=== PATIENT | female | born 1975 | race Caucasian/White ===

== ENCOUNTER → 2022-02-02 13:20 | Outpatient (CLI) | payer BC, SELFPAY ==
--- NOTE | ~2022-02-02 | US_ITS ---
EXAMINATION: US carotid duplex BI DATE: 02/02/2022 13:52 INDICATION: Dizziness TECHNIQUE: Grayscale, color Doppler, and pulsed Doppler images of the cervical carotid arteries were obtained. The degree of vessel stenosis is placed in one of the following categories: normal, <50%, 5 0-69%, >=70% but less than near-occlusion, near-occlusion, or total occlusion. Note that percent sten osis relative to normal distal artery lumen diameter is indirectly measured from velocity measurement s as described by Mannie, et al. Radiology 2003; 229:340-346. Notes: Normal: Peak systolic velocity <125 centimeters/sec and no plaque <50%. Peak systolic velocity <125 ( EDV <40; ICA/CCA PSV ratio <2.0; used these factors only a tandem lesions or low cardiac output or co ntralateral disease) 50-69 %: PSV 125-230 (EDV 40-100; ratio 2-4) >= 70% but less than near occlusion: PSV greater than 230 (EDV > 100; ratio> 4.0) Near Occlusion: PSV that is variable; markedly narrowed lumen Occlusion: Absent flow on color/spectral Doppler and no lumen on atkisn scale. COMPARISON: None. FINDINGS: RIGHT: The right common carotid artery (CCA) peak systolic velocity (PSV) is 93 cm/s. The right internal car otid artery (ICA) PSV is 78 cm/s. The right ICA end-diastolic velocity (EDV) is 29 cm/s. The right IC A/CCA PSV ratio is 1.1. The external carotid artery (ECA) PSV is 87 cm/s. There is antegrade flow in the right vertebral artery. LEFT: The left CCA PSV is 102 cm/s. The left ICA PSV is 92 cm/s. The left ICA EDV is 29 cm/s. The left ICA/ CCA PSV ratio is 1.3. The ECA PSV is 79 cm/s. There is antegrade flow in the left vertebral artery. IMPRESSION: 1. Less than 50% stenosis in the right internal carotid artery by sonographic criteria. 2. Less than 50% stenosis in the left internal carotid artery by sonographic criteria. Reviewed, dictated and finalized at location B. IMPRESSION: 1. Less than 50% stenosis in the right internal carotid artery by sonographic tristian dodson. 2. Less than 50% stenosis in the left internal carotid artery by sonographic yvette kang.
== END ==
PROVIDERS: PCP Physician Assistant; Visit Provider Physician Assistant
DX: R42 Dizziness and giddiness (principal); I65.23 Occlusion and stenosis of bilateral carotid arteries
CPT/HCPCS: 93880

== ENCOUNTER → 2022-02-19 09:15 | Outpatient (CLI) | payer BC, SELFPAY ==
--- NOTE | ~2022-02-19 | MR_ITS ---
EXAMINATION: MR brain IAC wo/w con DATE: 02/19/2022 10:05 INDICATION: Dizziness. TECHNIQUE: Magnetic resonance imaging (MRI) of the brain and brainstem was performed without and with 15 mL MultiHance intravenous contrast. COMPARISON: None. FINDINGS: There is no intracranial hemorrhage, acute infarction, or abnormal intracranial mass lesion . The ventricles are normal in size. The orbits are normal. The paranasal sinuses are clear. The inte rnal auditory canals and inner and middle ears are normal. The mastoid air cells are normal. IMPRESSION: 1. Normal brain. Reviewed, dictated and finalized at location B. IMPRESSION: 1. Normal brain.
== END ==
PROVIDERS: PCP Physician Assistant; Visit Provider Physician Assistant
DX: R42 Dizziness and giddiness (principal)
CPT/HCPCS: 70553; A9577

== ENCOUNTER 2024-06-04 16:02 | Outpatient (CLI) | payer BC, SELFPAY ==
--- NOTE | ~2024-06-04 | MM_ITS ---
EXAMINATION: MM screening kamala BI w davey HISTORY: Screening TECHNIQUE: Craniocaudal and mediolateral oblique 3-D tomosynthesis images were obtained and synthetic 2-D images were generated. CAD analysis was submitted and interpreted. COMPARISON: No prior mammogram is available for comparison at this institution. BREAST PARENCHYMAL COMPOSITION: Dense: The breasts are heterogeneously dense, which may obscure small masses FINDINGS: There are bilateral breast asymmetries in the upper aspect of both breasts. There is a smal l mass in the outer aspect of the left breast on CC view, tomographic image 46/67. IMPRESSION: 1. Bilateral breast asymmetries. Left breast mass. 2. Recommend comparison to previous outside mammograms. BI-RADS Category 0: Incomplete: Needs additional imaging evaluation. Reviewed, dictated and finalized at location A. E REPAIRER
--- OUTSIDE RECORDS SUMMARY | 2024-06-04 16:06 | XMS_ITS | Data Portability ---
Author Organization [facility] [place] Address [address] [place] [address] Assessment Encounter Date Assessment Date Assessment LastModified by Organization Details LastModified Time 01/15/2020 01/15/2020 Annual gynecological exam performed. Patient will come back in a year unless there are new symptoms. [email or web address] Not available 01/15/2020 12:32:34 05/25/2021 05/25/2021 Annual gynecological exam performed. Patient will come back in a year unless there are new symptoms. [email or web address] Not available 05/25/2021 15:02:07 10/09/2022 10/09/2022 Annual gynecological exam performed. Patient will come back in a year unless there are new symptoms. [email or web address] Not available 10/09/2022 14:14:36 Plan of Treatment Reminders Order Date Submit Date Provider Last Modified By Organization Details Last Modified Time Details Appointments None recorded. Lab None recorded. Referral None recorded. Procedures None recorded. Surgeries None recorded. Imaging MAMMO, screening, bilateral 2019 020 [facility], [address] [place] [address], [phone], 0 15:31:57 MAMMO, screening, bilateral [address], [facility] [address], [address], 3 14:39:32 Medication Orders Mirena 21 mcg/24 hr (up to 8 years) 52 mg intrauterin e device 2019 020 [email or web address] [id number], [address] [facility], [place], [id number], 0 11:05:21 Patient TargetsNo targets recorded. Patient Instructions Encounter Date Encounter Id Patient Instructions Last Modified By Organization Details Last Modified Time 01/15/2020 [id number] [email or web address] Not available 12:56:08 02/03/2020 [id number] [email or web address] Not available 09:59:14 Reason for Referral None Reported. Results Created Date Observation Date Name Description Value Unit Range Abnormal Flag Note LastModifiedBy Organization Detail LastModifiedTime 02/02/20 20 02/03/2020 beta- HCG, quant itati ve, serum or plasm a beta-HCG, serum, (quantitativ e) <1 mIU/m L HCG Refer ence Range s: Males : <0.2- 2.6 mIU/m L Nonpr egnan t Femal e: <0.2- 5 mIU/m L Post- menop ausal Femal e: <0.2- 8.3 mIU/m L Licha l Pregn juan: Week 3 hCG Range : 5.8-7 1.2 mIU/m L Week 4 hCG Range : 9.5-7 50 mIU/m L Week 5 hCG Range : 217-7 138 mIU/m L Week 6 hCG Range : 158-3 1795 mIU/m L Week 7 hCG Range : 3697- 71050 3 mIU/m L Week 8 hCG Range : 09715 -1495 71 mIU/m L Week 9 hCG Range : 17372 -1514 10 mIU/m L Week 10 hCG Range : 85708 -1869 77 mIU/m L Week 12 hCG Range : 90076 -2106 12 mIU/m L Week 14 hCG Range : 12331 -6253 0 mIU/m L Week 15 hCG Range : 88909 -7097 1 mIU/m L Week 16 hCG Range : 9040- 05864 mIU/m L Week 17 hCG Range : 8175- 27757 mIU/m L Week 18 hCG Range : 8099- 51567 mIU/m L Not Available [facility] ([facility]) [address] [place] [address] [address], [place], [address], 02/03/2020 09:22:36 02/03/20 20 02/05/2020 CT + NG DNA, PCR, unspe cifie d speci men trichomonas vaginalis, aptima (panther) NOT DETECT ED normal DNA testi ng perfo rmed by Trans cript ion Media jimbo Ampli ficat ion (TMA) These resul ts shoul d be inter prete d in light of all clini jaya and labor atory findi ngs. This assay is highl y accur ate, but rare false posit reyes and negat reyes resul ts may occur . Posit reyes resul ts in low preva lence popul ation s may requi re re-ev aluat ion. A negat reyes resul t does not precl ude a possi ble infec tion due to a speci men inade quacy or sampl ing error . Test perfo rmed by [facility], [facility], d/b/a Linda valdes, [address] [place] [address], [place] [address] , Ada Marquez ra, DO, Labor atory Dire tor. Not Available [facility] ([facility]) [address] [place] [address] [address], [place], [address], 02/05/2020 05:32:27 02/03/20 20 02/05/2020 CT + NG DNA, PCR, unspe cifie d speci men neisseria gonorrhoeae, aptima NOT DETECT ED normal DNA testi ng perfo rmed by Trans cript ion Media jimbo Ampli ficat ion (TMA) These resul ts shoul d be inter prete d in light of all clini jaya and labor atory findi ngs. This assay is highl y accur ate, but rare false posit reyes and negat reyes resul ts may occur . Posit reyes resul ts in low preva lence popul ation s may requi re re-ev aluat ion. A negat reyes resul t does not precl ude a possi ble infec tion due to a speci men inade quacy or sampl ing error . Test perfo rmed by [facility], [facility], d/b/a [facility], [address] [facility] [address], [place] [address] , Ada Marquez ra, , Labor atory Direc tor. Not Available [facility]) [address] [facility] [address] [address], [place], [address], 02/05/2020 05:32:27 02/03/20 20 02/05/2020 CT + NG DNA, PCR, unspe cifie d speci men chlamydia trachomatis, aptima NOT DETECT ED normal DNA testi ng perfo rmed by Trans cript ion Media jimbo Ampli ficat ion (TMA) These resul ts shoul d be inter prete d in light of all clini jaya and labor atory findi ngs. This assay is highl y accur ate, but rare false posit reyes and negat reyes resul ts may occur . Posit reyes resul ts in low preva lence popul ation s may requi re re-ev aluat ion. A negat reyes resul t does not precl ude a possi ble infec tion due to a speci men inade quacy or sampl ing error . Test perfo rmed by [facility] Jingshi Wanwei, [facility], d/b/a [facility], [address], [place] [address] , Ada Marquez ra, , Labor atory Direc tor. Not Available [facility] ([facility]) [address], [place], [address], 02/05/2020 05:32:27 05/25/19 22 05/25/2021 IMAGE GUIDE D PAP AND HPV REGAR DLESS image guided Pap, HPV regardless of Pap result SEE RESULT S BELOW CASE REPOR T: Cytol ogy Gynec ologi jaya Repor t Case: [id number] Autho gracia grigsby Provi kayla: Bert Gonzalez Colle cted: 05/25 1644 PASTRYCOOK'S ASSISTANT Order ing Locat ion: [place] [facility] bethanie Recei mena: 05/26 0043 First Scree n: Pauly Wills Speci men: Scree daisha Pap - Image d, Cervi x STATE MENT OF ADEQU ACY: Satis facto ry for evalu ation Trans forma tion zone compo nent prese nt FINAL DIAGN OSIS: Negat reyes for Intra epith elial Lesroslyn stewart or Tal salas (NIL) . Elect corrina willingham jono d by Pauly Wills on 2021 at 6:36 PM ----- ----- ----- ----- ----- ----- ----- ----- ----- ----- ----- ----- ----- ----- ----- ----- ----- ---- HPV RESUL TS: HPV mRNA E6/E7 : No HPV mRNA Detec jimbo NOTE: This high risk HPV mRNA assay detec ts fourt een high- risk HPV types (16, 18, 31, 33, 35, 39, 45, 51, 52, 56, 58, 59, 66, 68) witho ut diffe renti ation . COMME NT: Note: This speci men was revie wed by a Cytot echno logis t and/o r Patho logis t (as indic ated in this repor t) after evalu ation using the Thinp rep Imagi ng Syste m. CLINI JAYA INFOR MATIO N: Menst rual Statu s: LMP (if appli cable ): Clini jaya Histo ry/Pr eviou s Pap: Type of Neopl padmini (if appli cable ): Signi fican t Clini jaya Findi ngs: Other Histo ry: Hormo massiel (if appli cable ): PAP EDUCA SHAE L NOTE: The Pap Test is a scree daisha test with an inher ent false negat reyes rate. Liqui d-bas ed sampl ing may decre ase, but will not elimi homer, false negat reyes resul ts. A negat reyes resul t does not precl ude the prese nce and/o r devel opmen t of disea se, since the prese nce of abnor mal cells in the sampl e depen ds on the locat ion of the lesio n and sampl ing techn ique. [place] nued regul ar scree daisha is the best metho d of cance r preve ntion . If repor jimbo cytol ogic findi ng do not corre late with physi jaya and/o r histo rical findi ngs, furth er inves tigat ion is recom wyatt d, as clini ed warrmarisa nted. Not Available [facility] (Lab) [address] [facility], [place], [address], 05/31/2021 19:39:49 02/03/20 20 02/02/2020 MAMMO , scree daisha, bilat eral No observ ation record ed. [facility] (Imaging) [address] [place], [address], 02/05/2020 16:01:38 Result Notes None recorded. Problems Name Problem SNOMED Code Status Onset Date Resolution Date Notes Provider Name and Address Organization Details Recorded Time SNOMED CT Concept Completed 201805/25/2021 Encntr for general adult medical exam w/o abnormal findings; Recorded Elsewhere : No Locati on: [facility] So urce: EHR Chron ic: N Practic e ID: [id number] Bill able Time: 09:45:00 AM Tiffanie thurston [facility] 2 15:04:[address] Concept Completed 201805/25/2021 Encntr for bulk sausage casing tier off exam (general) (routine) w/o abn findings; Recorded Elsewhere : No Locati on: [facility] So urce: EHR Chron ic: N Practic e ID: [id number] Bill able Time: 09:45:00 AM Tiffanie thurston [facility] 2 15:04:37 Human papilloma virus screening Completed 201805/25/2021 Encounter for screening for human papilloma virus (HPV);Rec orded Elsewhere : No Locati on: [facility] So urce: EHR Chron ic: N Practic e ID: [id number] Bill able Time: 09:45:00 AM Tiffanie thurston, [facility] 2 15:04:30 Screening for malignant neoplasm of rectum Completed 201805/25/2021 Encounter for screening for malignant neoplasm of rectum;Pr actice ID: [id number] Tiffanie thurston, [facility] 2 15:04:33 Problem Notes None recorded. Procedures Surgical History Date Name Laterality Status Provider Name and Address Organization Details Recorded Time 3 Most Recent Bone Density completed Marni Diaz [facility] 10/09/2022 14:15:42 2 Date of Last Pap Smear completed Tiffanie Bender [facility] 05/25/2021 15:04:50 2 Date of Last Mammogram completed Tiffanie Bender [facility] 05/25/2021 15:03:19 0 IUD Removal completed Krissy Doshi, [facility] [address], [place], [address], [facility] 02/03/2020 10:00:06 0 IUD Insertion completed Kiarra Martines [facility] 02/03/2020 09:30:10 2 procedure on heart completed Tiffanie Bender [facility] 06/08/2021 15:59:05 Imaging Results Imaging Date Name Status LastModified by Organiz ation Details LastModified Time 02/02/2020 MAMMO, screening, bilateral completed [facility] (Imaging) [address] [place], [address], 02/05/2020 16:01:38 Procedure Notes None recorded. Medical Equipment None Reported. Allergies No known drug allergies Medications Name Sig Start Date Stop Date Status Note LastModified by Organization Details LastModified Time multivita min tablet 2018 active Prescrib ed Elsewher e: Yes Loca tion: [facility] odify By: iva Patel r DateTime : 06/30/19 09:45:00 AM Not Available Not Available Not Available Mirena 21 mcg/24 hr (up to 8 years) 52 mg intrauter ine device MIRENA INSERTED 2019 active Not Available Not Available Not Avai lable hydrocodo ne 5 mg-acetam inophen 325 mg tablet TAKE 1 TABLET BY MOUTH EVERY 6 HOURS NEEDED 10/09 completed Not Available Not Available Not Available prednisol one acetate 1 % eye drops,casey pension SHAKE LIQUID AND INSTILL 1 DROP IN BOTH EYES FOUR TIMES DAILY FOR 7 DAYS 10/09 completed Not Available Not Available Not Available cephalexi n 500 mg capsule TAKE 1 CAPSULE BY MOUTH EVERY 8 HOURS FOR 10 DAYS 10/09 completed Not Available Not Available Not Available cefuroxim e axetil 500 mg tablet TAKE 1 TABLET BY MOUTH EVERY 12 HOURS 10/09 completed Not Available Not Available Not Available Fish Oil 340 mg-1,000 mg capsule 2018 active Prescrib ed Elsewher e: Yes Loca tion: [facility] odify By: iva Patel r DateTime : 06/30/19 09:45:00 AM Not Available Not Available Not Available B12 active Not Available Not Availa ble Not Available Vitamin D3 125 mcg (5,000 unit) tablet 2018 active Prescrib ed Elsewher e: Yes Loca tion: [facility] odify By: iva Patel r DateTime : 06/30/19 09:45:00 AM Not Available Not Available Not Available Ivon Allergy active Not Available Not Available Not Available Vitals Date Recorded Body height Body mass index (BMI) Body weight Provider Name and Address Organization Details Last Updated DateTime 05/25/2021 159.39 cm 28.9 kg/m2 03389.96 g [place]iffanie Bender [facility] 05/25/2021 15:02:32 Date Recorded Systolic blood pressure Diastolic blood pressure Provider Name and Address Organization Details Last Updated DateTime 05/25/2021 128 mm[Hg] 78 mm[Hg] Krissy Doshi, [facility] [address], [place], [address], [facility] 05/28/2021 10:59:29 Date Recorded Body height Body mass index (BMI) Body weight Provider Name and Address Organization Details Last Updated DateTime 10/09/2022 159.39 cm 30.9 kg/m2 39566.48 g Marni Joe [facility] 10/09/2022 14:14:51 Date Recorded Systolic blood pressure Diastolic blood pressure Provider Name and Address Organization Details Last Updated DateTime 10/09/2022 129 mm[Hg] 80 mm[Hg] Krissy Doshi [facility] [address], [place], [address], [facility] 11/02/2022 22:29:35 Date Recorded Body height Body mass index (BMI) Body weight Systolic blood pressure Diastolic blood pressure Provider Name and Address Organization Details Last Updated DateTime 01/15/2020 160.02 cm 28.2 kg/m2 88717.19 g 136 mm[Hg] 84 mm[Hg] Kiarra Martines [facility] 0 12:37:11 Date Recorded Body height Body mass index (BMI) Body weight Systolic blood pressure Diastolic blood pressure Provider Name and Address Organization Details Last Updated DateTime 02/03/2020 160.02 cm 28.7 kg/m2 73793.96 g 137 mm[Hg] 82 mm[Hg] Kiarra Martines [facility] 0 09:40:06 Date Recorded Body height Body mass index (BMI) Body weight Systolic blood pressure Diastolic blood pressure Provider Name and Address Organization Details Last Updated DateTime 03/01/2020 160.02 cm 28.5 kg/m2 84249.37 g 134 mm[Hg] 83 mm[Hg] Kiarra Martines [facility] 0 13:02:09 Social History Question Answer Notes LastModified by Organizat ion Details LastModified Time Tobacco Smoking Status Never Smoker Venkateshnohemiantonia Hanna [facility] 10/09/2022 14:06:10 Do You Have An Advance Directive? No [email or web address] Information not available 05/25/2021 What Is Your Level Of Alcohol Consumption? Occasional [email or web address] Information not available 05/25/2021 How Many Years Have You Consumed Alcohol? 20 [email or web address] Information not available 05/25/2021 Are You Blind Or Do You Have Difficulty Seeing? No [email or web address] Information not available 05/25/2021 What Is Your Level Of Caffeine Consumption? Moderate [email or web address] Information not available 05/25/2021 How Much Tobacco Do You Chew? None [email or web address] Information not available 05/25/2021 In The 14 Days Before Symptom Onset, Have You Had Close Contact With A Laboratory-confir med COVID-19 While That Case Was Ill? No [email or web address] Information not available 05/25/2021 In The 14 Days Before Symptom Onset, Have You Had Close Contact With A Person Who Is Under Investigation For COVID-19 While That Person Was Ill? No [email or web address] Information not available 05/25/2021 Have You Been To An Area Known To Be High Risk For COVID-19? No [email or web address] Information not available 05/25/2021 Are You Deaf Or Do You Have Serious Difficulty Hearing? No [email or web address] Information not available 05/25/2021 What Type Of Diet Are You Following? REGULAR [email or web address] Information not available 05/25/2021 What Is The Highest Grade Or Level Of School You Have Completed Or The Highest Degree You Have Received? CY43663-6 [email or web address] Information not available 05/25/2021 What Is Your Occupation? [employer] [email or web address] Information not available 05/25/2021 Are There Any Guns Present In Your Home? Yes [email or web address] Information not available 05/25/2021 Do You Use Your Seat Belt Or Car Seat Routinely? Yes [email or web address] Information not available 05/25/2021 Do You Have Smoke And Carbon Monoxide Detectors In Your Home? Yes [email or web address] Information not available 05/25/2021 How Much Tobacco Do You Smoke? No [email or web address] Information not available 05/25/2021 Do You Feel Stressed (tense, Restless, Nervous, Or Anxious, Or Unable To Sleep At Night)? [id number] [email or web address] Information not available 05/25/2021 Do You Use Any Illicit Or Recreational Drugs? No [email or web address] Information not available 05/25/2021 Do You Use Sunscreen Routinely? Yes [email or web address] Information not available 05/25/2021 Have You Used IV Drugs? No [email or web address] Information not available 05/25/2021 Sex: Unknown Functional Status Question Answer Note LastModified by Organizat ion Details LastModified Time Are you able to walk? YESWOREST [email or web address] Information not available 05/25/2021 What is your exercise level? Occasional [email or web address] Information not available 05/25/2021 Mental Status None recorded. Family History Relationship Description Onset Age of this Age Resolved Age Notes LastModified by Organization Details LastModified Time Maternal Grandmother Diabetes mellitus [email or web address] Not available 2019 12:38:11 Maternal Uncle Diabetes mellitus [email or web address] Not available 2019 12:38:11 Maternal Uncle Disorder of cardiovascul ar system Not available 2022 14:06:10 Mother Hypercholest erolemia [email or web address] Not available 2019 12:38:20 Maternal Grandfather Disorder of cardiovascul ar system [email or web address] Not available 2022 14:06:10 Notes:Maternal grandfather: Cardiovascular disease Maternal grandmother: Diabetes mellitus Maternal uncle: Diabetes mellitus, Cardiovascular disease Mother: High cholesterol Medical History Condition Response Allergies (Food, seasonal, environmental ) N Other N Breast Cancer N Drug/Latex Allergies/Reactions N Blood Transfusion N Dermatologic Disorders N Lung Disease N Defects or Inherited Disease N Breast Problem N Gestational Diabetes N Hematologic disorders N Anesthesia Complications N History of STI N Deep Vein Thrombosis N Polycystic ovary syndrome N Anxiety Disorder N Autoimmune disease N Arthritis N Infertility N Acid Reflux (GERD) N History of abnormal pap N Cancer N Stroke N Varicosities N Neurologic/Epilepsy Y Endometriosis N High Cholesterol N Headaches N Fibromyalgia N Kidney Disease N Heart Problems Y Kidney or Bladder Problems N Thyroid Problems N GI Problems N Eating Disorder N Anemia N Art (IVF or FET) N Ovarian Cancer N Diabetes N Pulmonary (TB, Asthma) N Hepatitis/Liver Disease N No Past Medical History N Eczema N Urinary Tract Infection N Abuse/Domestic Violence N Asthma N Trauma/Violence N Depression/ depression N Heart Disease Y Pre-Eclampsia N Hypertension Y Osteoporosis N Thrombophilias N Gynecological History Statement/Question Response Abnormal Pap N Date of Last Mammogram 05/17/2021 Date of LMP On BCP's at Conception? N N STIs/STDs N Duration of Flow (days) 5 Current Control Method IUD Age at First Child 30 Frequency of Cycle (Q days) 29 Most Recent Bone Density 10/02/2022 Sexually Active? Y Menses Monthly N Age of first menstrual cycle 14 Date of Last Pap Smear 05/25/2021 Sexual Problems? N LMP Unknown N Obstetrics History GPAL:G 2 P 0 0 0 2 Type Value Living 2 Total 2 Past Encounters Encounter ID Performer Location Encounter Start Date Encounter Closed Date Diagnosis/Indication Diagnosis SNOMED-CT Code Diagnosis ICD10 Code Diagnosis Note [id number] Krissy Doshi , [facility] [address] [address] 01/15/2020 12:31:35 01/15/2020 14:04:23 Gynecologic examination [id number] Z01.419 Suggested Calcium with Vitamin D 1200-1500m g daily. Patient advised to get an annual flu shot in the fall and she could obtain at [facility] or [facility] care clinic. Also to obtain TDap vaccinatio n if you have not had one in the last 10 years. Recommend yearly mammograms . Encouraged monthly self breast exams. Encourage safe sexual practices, to use condoms and limit partners if not already in a monogamous relationsh ip. Engage in daily exercise of low impact aerobic exercise 45-60 minutes 4-5 times weekly. Avoid tobacco and illicit drugs as well as using moderation with alcohol intake less than 1-2 8 oz beverages daily. This lifestyle behavior pattern will lead to less health conditions and longer life span. If BMI greater than 25 weight watchers or dietary consult advised. All questions have been answered. Patient appears to understand informatio n, but if you have any questions please call or respond to this email. IUD Mirena placed elsewhere Due out 11/2019 Will come for HCG day before then come to appt removal/re insertion. Screening mammography 24 [id number] Z12.31 [id number] Krissy Doshi [facility] [address] [address] 02/03/2020 09:28:10 02/03/2020 10:07:16 Contraception care management 530078689 Z30.2 Removal of intrauterine device 41111762 Z30.432 IUD removal procedure reviewed. It was explained that she may have bleeding or spotting after the removal of the device today as well. If cannot see the strings of this device we will need to get an US image to make that the device is still in place and not in an unobtainab le position. She expressed understand ing of all the above instructio ns. Insertion of intrauterine contraceptive device [id number] Z30.433 She has been counseled on all of the r/b/a of placement of an intrauteri ne device that include but are not limited to uterine perforatio n, injury to cervix, vagina, bladder, and bowel.Risk s of bleeding due to injury or increased irregular bleeding due to progestin effect of the device. Risks of infection would be increased within the first 21 days of placement with concommite nt cervicitis . She understand s that the device will need to be removed in this instance due to increased risk of Pelvic inflammato ry disease. Patient is aware she is at highter risk for STD and if contracted she could lose her fertility. Pt is aware that if ocurs that she should contact office immediatel y to rule out ectopic which could be life threatenin g. IUD will also need to be removed and this could cause miscarriag e. Patient also informed that in the event her strings are absent or embedded at the time of removal she may need to have the IUD surgically removed. She was informed of the above and properly consented. IUD placed w/o complicati on. Patient should return to office after next period to check for string placement. Patient to expect irregular bleeding but should be seen in the ED if bleeding increases to soaking a pad an hour for at least 2 hours. She verbalized understand ing. [id number] Krissy Doshi [facility] [address] [address] 03/01/2020 12:57:30 03/01/2020 14:18:26 Intrauterine device check [id number] Z30.431 Patient is here today for 4wk IUD string check. She reports she is doing well after placement of this device. She is eating/dri nking/slee ping well. She has no adverse side effects from use of this device. She wishes to continue this therapy. Time spent in visit is a total of 15 mins with at least 50% of visit consisting of counseling and review of plan of care. [id number] Krissy Dohsi [facility] [address],[place] [address] 05/25/2021 14:45:00 05/26/2021 16:08:33 Gynecologic examination [id number] Z01.419 Suggested Calcium with Vitamin D 1200-1500m g daily. Patient advised to get an annual flu shot in the fall and she could obtain at [facility] or [facility] clinic. Also to obtain TDap vaccinatio n if you have not had one in the last 10 years. Recommend yearly mammograms . Encouraged monthly self breast exams. Encourage safe sexual practices, to use condoms and limit partners if not already in a monogamous relationsh ip. Engage in daily exercise of low impact aerobic exercise 45-60 minutes 4-5 times weekly. Avoid tobacco and illicit drugs as well as using moderation with alcohol intake less than 1-2 8 oz beverages daily. This lifestyle behavior pattern will lead to less health conditions and longer life span. If BMI greater than 25 weight watchers or dietary consult advised. All questions have been answered. Patient appears to understand informatio n, but if you have any questions please call or respond to this email.Mamm o WNL-05/2021 STD declinedPa p/hpv sentNO issues or concernsGe netic screen discussed A Mirena IUD prevents for up to 7 years, and also helps with heavy periods for up to 5 years in women who choose an IUD for control. [id number] [facility] [address],[place] [address] 10/09/2022 14:06:00 10/10/2022 15:09:14 Gynecologic examination [id number] Z01.419 Z11.51 Suggested Calcium with Vitamin D 1200-1500m g daily. Patient advised to get an annual flu shot in the fall and she could obtain at [facility] or [facility] clinic. Also to obtain TDap vaccinatio n if you have not had one in the last 10 years. Recommend yearly mammograms . Encouraged monthly self breast exams. Encourage safe sexual practices, to use condoms and limit partners if not already in a monogamous relationsh ip. Engage in daily exercise of low impact aerobic exercise 45-60 minutes 4-5 times weekly. Avoid tobacco and illicit drugs as well as using moderation with alcohol intake less than 1-2 8 oz beverages daily. This lifestyle behavior pattern will lead to less health conditions and longer life span. If BMI greater than 25 weight watchers or dietary consult advised. All questions have been answered. Patient appears to understand informatio n, but if you have any questions please call or respond to this email.Pap/ hpvMonogam ous relationsh ipNormal pap/hpv HxOpts to defer pap this year per asccp unless otherwise indicated (consider q3-5yr schedule unless otherwise indicated. STD ScreenGene tic ScreenColo n ScreenDexa ScreenRout ine Labs Screening mammography 24 [id number] Z12.31 Health Concerns Section Related Observation LastModified by Organization Detai ls LastModified Time None Recorded Concern Status LastModified by Organization Details LastModified Time None Recorded Advance Directives Directive N: Payers Encounter Date Sequence Insurance Name Policy Number Policy Mckenzie Covered Member ID Mckenzie Member ID Guarantor Name 01/15/2020 1 [place] 105 Conrad Galvan [id number] Talia Galvan 02/03/2020 1 [place] 105 Conrad Eddyht [id number] Talia Galvan 03/01/2020 1 [place] [id number] Conrad Eddyht [id number] Talia Eddyht 05/25/2021 1 [place] [id number] Conrad Eddyht [id number] Talia Galvan 10/09/2022 1 [place] [id number] Conrad Galvan [id number] Talia Galvan Notes Date Note Type Note Provider Name and Address Organization Details Recorded Time 01/15/2020 text/html Annual GYNReport ed bypatient.History: no gynecologic complaints Menstrual cycle:Normal menses Urinary symptoms:No hematuria; No incontinence Vulva:No genital lesion Vagina:Normal vaginal discharge Breast:No breast pain; No breast lump; No nipple discharge Current Contraception:Sati sfied with current contraception; Monogamous relationship; Intrauterine device (iud) Sexual complaints:No sexual complaints; No pain during intercourse; Normal libido Menopausal Symptoms:No menopausal symptoms; Normal vaginal lubrication Psychological symptoms:No depression; No anxiety; No PMDD Preventive measures:Encourage self breast examination; Encourage regular exercise; Encourage no tobacco use; Encourage regular mammograms starting age 40; Followed with Q3 year pap smear and high risk HPV typing; Needs to schedule mammogram HERMAN Rader [address], [place], [address], [facility] 01/15/2020 13:06:11 02/03/2020 text/html Patient presents for IUD removal/reinsertio n. JOHN Rader [address], [place], [address], [facility] 02/03/2020 10:02:12 03/01/2020 text/html Patient is here today for 4wk IUD string check. She reports she is doing well after placement of this device. She is eating/drinking/sl eeping well. She has no adverse side effects from use of this device. She wishes to continue this therapy. JOHN [address], [place], [address], [facility] 03/01/2020 13:19:00 05/25/2021 text/html Annual GYNReport ed bypatient.History: no gynecologic complaints Menstrual cycle:Normal menses Urinary symptoms:No hematuria; No incontinence Vulva:No genital lesion Vagina:Normal vaginal discharge Breast:No breast pain; No breast lump; No nipple discharge Current Contraception:Sati sfied with current contraception; Monogamous relationship; Intrauterine device (iud) Sexual complaints:No sexual complaints; No pain during intercourse; Normal libido Menopausal Symptoms:No menopausal symptoms; Normal vaginal lubrication Psychological symptoms:No depression; No anxiety; No PMDD Preventive measures:Encourage self breast examination; Encourage regular exercise; Encourage no tobacco use; Encourage regular mammograms starting age 40; Followed with Q3 year pap smear and high risk HPV typing; Mammogram performed within the past year [facility] [address], [place], [address], [facility] 05/28/2021 11:01:28 10/09/2022 text/html Annual GYNReport ed bypatient.Menstrua l cycle:Normal menses (Amenorrhiec on Mirena IUD) Urinary symptoms:No hematuria; No incontinence Vulva:No genital lesion Vagina:Normal vaginal discharge Breast:No breast pain; No breast lump; No nipple discharge Current Contraception:Sati sfied with current contraception; Intrauterine device (iud) Sexual complaints:No sexual complaints; No pain during intercourse; Normal libido Menopausal Symptoms:No menopausal symptoms; Normal vaginal lubrication Psychological symptoms:No depression; No anxiety; No PMDD Preventive measures:Encourage self breast examination; Encourage regular exercise; Encourage no tobacco use; Encourage regular mammograms starting age 40; Followed with yearly pap smears; Needs to schedule mammogram; Up to date on colonoscopy screening [facility] [address], [place], [address], [facility] 11/02/2022 22:31:00 OBGyn Episode Ob Episode Information Episode Created Date Number of Fetuses Patient Bloodtype Patient rh Status Prepregnancy Weight lbs Domestic Partner Domestic Partner Phone Father Name Underwriting Internship Status 01/15/20 20 1 CLOSED Fetus Data First Name Last Name Admitted to NICU Weight (g) Sex Living Outcome Pediatric Complications Fetus ID Race Codes Race Delivery Type 3600.15 9704 M Full Term [id number] Vaginal Delivery Inderjit Calculation Initial Inderjit Date Initial Exam Date Initial Exam Provider Initial Ultrasound Date Last Menstrual Period Date Ultra Sound Weeks Gestation 0 Eighteen To Twenty Week Inderjit Update Ultra Sound Date Fundal Height At Umbil Quickening Date Ultra Sound Latest Weeks Gestation Final Inderjti Confirmed By Final Inderjit Confirmed Date Final Inderjit Date Ultra Sound Latest Days Gestation 0 0 Menstrual History Last Menstrual Date Menses Monthly On Bcp Conception Prior Menses Frequency Hcg Plus Date Menarche Onset Age Delivery Information Delivery Date Delivery Type Labor Anesthesia Weeks Gestation Incision Type Labor Labor Length Hrs Delivered By Post Complications Tubal Sterilization Discharge Date Comments 6 41 Discharge Information Feeding Method Contraceptive Method Maternal HG B and HCT Levels Ob Episode Information Episode Created Date Number of Fetuses Patient Bloodtype Patient rh Status Prepregnancy Weight lbs Domestic Partner Domestic Partner Phone Father Name Underwriting Internship Status 01/15/20 20 1 CLOSED Fetus Data First Name Last Name Admitted to NICU Weight (g) Sex Living Outcome Pediatric Complications Fetus ID Race Codes Race Delivery Type 4053.75 1704 F Full Term [id number] Vaginal Delivery Inderjit Calculation Initial Inderjit Date Initial Exam Date Initial Exam Provider Initial Ultrasound Date Last Menstrual Period Date Ultra Sound Weeks Gestation 0 Eighteen To Twenty Week Inderjit Update Ultra Sound Date Fundal Height At Umbil Quickening Date Ultra Sound Latest Weeks Gestation Final Inderjit Confirmed By Final Inderjit Confirmed Date Final Inderjit Date Ultra Sound Latest Days Gestation 0 0 Menstrual History Last Menstrual Date Menses Monthly On Bcp Conception Prior Menses Frequency Hcg Plus Date Menarche Onset Age Delivery Information Delivery Date Delivery Type Labor Anesthesia Weeks Gestation Incision Type Labor Labor Length Hrs Delivered By Post Complications Tubal Sterilization Discharge Date Comments 0 40 Discharge Information Feeding Method Contraceptive Method Maternal HG B and HCT Levels
--- OUTSIDE RECORDS SUMMARY | 2024-06-04 16:06 | XMS_ITS | Referral Summary ---
Author Organization [facility] Address [address] [place] [address] Care Team Providers Care Warehouse Shipping Supervisor Name Role Phone Karen Denson Primary Care Pr ovider Allergies No known active allergies Medications levonorgestreL (Mirena) IUD 1 each by intrauterine route 0 Active cholecalciferol (VITAMIN D-3) 5,000 unit tablet Take 1 tablet (5,000 Units total) by mouth daily 9 Active loratadine (CLARITIN) 10 mg tablet Take 1 tablet (10 mg total) by mouth daily Active Active Problems No known active problems Social History Tobacco Use Types Packs/Day Years Used Date Smoking Tobacco: Never Assessed Comments Unknown Sex and Gender Information Value Date Recorded Sex Assigned at Not on file Legal Sex Female 2:46 PM CDT Gender Identity Female 09/19/2021 1:23 PM CDT Sexual Orientation Not on file Last Filed Vital Signs Vital Sign Reading Time Taken Comments Blood Pressure 164/88 05/15/2023 8:11 AM FORENSIC TOXICOLOGIST Pulse 85 05/15/2023 8:11 AM FORENSIC TOXICOLOGIST Temperature 36.7 ??C (98.1 ??F) 05/15/2023 8:11 AM CS T Respiratory Rate 16 05/15/2023 8:11 AM FORENSIC TOXICOLOGIST Oxygen Saturation 98% 05/15/2023 8:11 AM FORENSIC TOXICOLOGIST Inhaled Oxygen Concentration - - Weight 74.6 kg (164 lb 8 oz) 05/15/2023 8:11 AM FORENSIC TOXICOLOGIST Height 160 cm (5' 2.99 ) 05/15/2023 8:11 AM FORENSIC TOXICOLOGIST Body Mass Index 29.15 05/15/2023 8:11 AM FORENSIC TOXICOLOGIST Plan of Treatment Not on file Insurance [facility] FEDERAL [facility] [employer] Care Teams Warehouse Shipping Supervisor Relationship Specialty Start Date End Date Karen Denson PA PCP - General Physician Lending Advisor 09/19/21
--- OUTSIDE RECORDS SUMMARY | 2024-06-04 16:06 | XMS_ITS | Clinical Summary ---
Author Organization [facility] Address [address] [place] [address] Care Team Providers Care Archivist Military History Name Role Phone Unknown, Provider Primary Care Provider Unavaila ble Source Comments [facility] Affiliates and Associated Physician Practices is amultiple site organization consisting of ambulatory clinics and hospital sitesin [place], [place], [place] and [place]. This disclosure is being madepursuant to the Care Everywhere program and may not contain all information available regarding this patient. Last updated 18.[facility] [employer] Social History Tobacco Use Types Packs/Day Years Used Date Smoking Tobacco: Never Assessed Sex and Gender Information Value Date Recorded Sex Assigned at Not on file Gender Identity Not on file Sexual Orientation Not on file Plan of Treatment Health Maintenance Due Date Last Done Comments COLOGUARD (AGES 45-75) - COL ON CA SCREENING 1976 COLON MONITORING 1976 COLONOSCOPY - COLON CA SCREENING 1976 CT COLONOGRAPHY - COLON CA SCREENING 1976 Colorectal Cancer Screening 1976 FIT - COLON CA SCREENING 1976 FLEX SIG - COLON CA SCREENING 1976 LIPID TESTING 1976 MAMMOGRAM 1976 PAP SMEAR 1976 HIV SCREENING 09/15/1991 HEPATITIS C SCREENING 09/10/1994 DTAP/TDAP/TD VACCINES (1 - Tdap) 09/15/1995 HEPATITIS B VACCINE (1 of 3 - 19+ 3-dose series) 09/15/1995 COVID-19 VACCINE ( - 2023-2 5 season) 2024 INFLUENZA VACCINE (#1) 2024 DEPRESSION SCREENING 05/06/2024 ZOSTER VACCINE (1 of 2) 2026 HIB VACCINE Aged Out No longer eligi ble based on patient's age to complete this topic HPV VACCINE Aged Out No longer eligi ble based on patient's age to complete this topic MENINGOCOCCAL (Group B) VACCINE Aged Out No longer eligible based on patient's age to complete this topic MENINGOCOCCAL VACCINE Aged Out No troy meggan eligible based on patient's age to complete this topic PNEUMOCOCCAL VACCINE Aged Out No long er eligible based on patient's age to complete this topic Care Teams Archivist Military History Relationship Specialty Start Date End Date Unknown, Provider PCP - General 06/28/16
--- OUTSIDE RECORDS SUMMARY | 2024-06-04 16:06 | XMS_ITS | Referral Summary ---
Author Organization [facility] Address [address] [place] [address] Care Team Providers Care Web Merchant Name Role Phone Unknown, Provider Primary Care Provider Unavaila ble Source Comments [facility],non-owned Affiliates and Associated Physician Practices is amultiple site organization consisting of ambulatory clinics and hospital sitesin [place], [place], [place] and [place]. This disclosure is being madepursuant to the Care Everywhere program and may not contain all information available regarding this patient. Last updated 18.[facility] [employer] Social History Tobacco Use Types Packs/Day Years Used Date Smoking Tobacco: Never Assessed Sex and Gender Information Value Date Recorded Sex Assigned at Not on file Gender Identity Not on file Sexual Orientation Not on file Plan of Treatment Not on file Administered Medications Care Teams Web Merchant Relationship Specialty Start Date End Date Unknown, Provider PCP - General 06/28/16
--- OUTSIDE RECORDS SUMMARY | 2024-06-04 16:06 | XMS_ITS | Data Portability ---
Author Organization [facility] Address [address] [facility] [address] Care Team Providers Care Assistant Printer Floor Covering Name Role Phone RYNE RUIZ Primary Care Provider Unavailab le Assessment Encounter Date Assessment Date Assessment LastModified by Organization Details LastModified Time 01/17/2024 01/17/2024 Mammogram due pap smear due, they haven't returned her call Eye exam: UTD dental exam: UTD labs due Colonoscopy/c ologuard- Not available 01/17/2024 17:09:19 Plan of Treatment Reminders Order Date Submit Date Provider Last Modified By Organization Details Last Modified Time Details Appointments None recorded. Lab TSH + free T4, serum 2023 024 [facility], [address], [place], [address], 12:35:36 lipid panel, serum 2023 [facility], [address], [place], [address], 12:35:45 CBC w/ auto diff 2023 024 J[facility] [place], [address], 12:36:31 CMP, serum or plasma 2023 024 [facility], [address], [place], [address], 4 12:35:53 noninvasiv e colorectal cancer DNA + occult blood screening, QL, stool 2023 [facility] (Cologuard Orders Only), [address], [address], [place], [address], 4 06:08:24 HbA1c (hemoglobi n A1c), blood 2023 [facility], [address], [place], [address], 4 12:36:08 Referral None recorded. Procedures None recorded. Surgeries None recorded. Imaging MAMMO, screening, digital, bilateral 2023 [facility] Not available 4 12:41:17 Medication Orders montelukas t 10 mg tablet 2023 [id number], [address] [facility], [place], [place], [id number], 4 17:37:44 Medrol (Yariel) 4 mg tablets in a dose pack 2023 [facility] #[id number], [address] [facility], [place], [place], [id number], 4 17:37:40 Patient TargetsNo targets recorded. Patient Instructions Encounter Date Encounter Id Patient Instructions Last Modified By Organization Details Last Modified Time 01/17/2024 [id number] A healthy lifestyle: care instructions Not available 01/17/2024 17:23:48 Reason for Referral None Reported. Results Created Date Observation Date Name Description Value Unit Range Abnormal Flag Note LastModifiedBy Organization Detail LastModifiedTime 02/09/20 24 02/09/2024 COLOG UARD cologuard result reportable NEGATI VE negati ve normal NEGAT JOSE ELIAS TEST RESUL T. A negat jose elias Colog uard resul t indic ates a low likel ihood that a color ectal cance r (CRC) or advan jaja adeno ma (aldair omato us polyp s with more advan jaja pre-m align ant featu res) is prese nt. The chanc e that a perso n with a negat jose elias Colog uard test has a color ectal cance r is less than 1 in 1500 (nega tive predi ctive value >99.9 %) or has an advan jaja adeno ma is less than 5.3% (nega tive predi ctive value 94.7% ). These data are based on a prosp ectiv e cross -sect ional study of 10,00 0 indiv idual s at [place] [facility] risk for color ectal cance r who were scree julien with both Colog uard and colon oscop y. (Kristel Jhaveri et al, N Engl J Med 2014; 370(1 4):12 86-12 97) The armando l value (refe rence range ) for this assay is negat jose elias. COLOG UARD RE-SC REETAMI NG RECOM MENDA TION: Perio dic color ectal cance r scree daisha is an impor tant part of preve ntive healt hcare for asymp tomat ic indiv idual s at [place] [facility] risk for color ectal cance r. Follo wing a negat jose elias Colog uard resul t, the Ameri can Cance r Socie ty and U.S. Multi -Soci ety Task Force scree daisha guide lines recom mend a Colog uard re-sc reetami ng inter adriana of 3 years . Refer ences : Ameri can Cance r Socie ty Guide line for Color ectal Cance r Scree daisha: https ://reina w.can cer.o rg/ca ncer/ colon -rect al-ca ncer/ detec tion- diagn osis- stagi ng/ac s-rec ommen datio ns.ht ml.; Lm [place], Kaur blum CR, Gisele TejadaK, Color ectal Cance r Scree daisha: Recom menda tions for Physi cians and Patie nts from the U.S. Multi -Soci ety Task Force on Color ectal Cance r Onel ashton , Am J Enriqueta millsog y 2017; 112:1 016-1 030. TEST DESCR IPTIO N: Heath site algor ithmi c theo sis of stool DNA-b iogretchen kim with hemog lobin immun oassa y. Quant itati ve value s of indiv idual bioma rkers are not repor table and are not assoc iated with indiv idual bioma rker resul t refer ence range s. Colog uard is inten ded for color ectal cance r scree daisha of adult s of eithe r sex, 45 years or older , who are at [facility] for color ectal cance r (CRC) . Colog uard has been appro mena for use by the U.S. FDA. The perfo rmanc e of Colog uard was estab lishe d in a cross secti onal study of [facility] adult s aged 50-84 . Colog uard perfo rmanc e in patie nts ages 45 to 49 years was estim ated by sub-g roup theo sis of near- age group s. Colon oscop ies perfo rmed for a posit jose elias resul t may find as the most clini ed signi chandra oseguera n: color ectal cance r [4.0% ], advan jaja adeno ma (incl uding sessi le glae jimbo polyp s great er than or equal to 1cm diame ter) [20%] or non- advan jaja adeno ma [31%] ; or no color ectal neopl padmini [45%] . These estim ates are deriv ed from a prosp ectiv e cross -sect ional scree daisha study of 10,00 0 indiv idual s at [facility] risk for color ectal cance r who were scree julien with both Colog uard and colon oscop y. (Kristel York al, N Engl J Med 2014; 370(1 4):12 86-12 97.) Colog uard may produ ce a false negat jose elias or false posit jose elias resul t (no color ectal cance r or preca ncero us polyp prese nt at colon oscop y follo w up). A negat jose elias Colog uard test resul t does not guara ntee the absen ce of CRC or advan jaja peters ma (pre- cance r). The curre nt Colog uard scree daisha inter adriana is every 3 years . (Amer ican Cance r Socie ty and U.S. Multi -Soci ety Task Force ). Colog uard perfo rmanc e data in a 10,00 0 patie nt pivot al study using colon oscop y as the refer ence metho d can be acces sed at the follo wing locat ion: www.e xactl abs.c om/re sults . Addit ional descr iptio n of the Colog uard test proce ss, warni ngs and preca ution s can be found at www.c lukasz rajat.c om. Not Available [facility] (Cologuard Orders Only) [address], [place], [address], 02/14/2024 06:08:24 Result Notes None recorded. Problems Name Problem SNOMED Code Status Onset Date Resolution Date Notes Provider Name and Address Organization Details Recorded Time Overweight 642767634 Active 024 KAUSHIK Sifuentes Attn: Cynthia grigsby,[address] [place], [address], [facility] 4 20:41:21 Body mass index 25-29 - overweight 610173215 Active 024 KAUSHIK Sifuentes Attn: Cynthia g,[address] [place], [address], [facility] 4 20:41:22 Problem Notes None recorded. Procedures Surgical History Date Name Laterality Status Provider Name and Address Organization Details Recorded Time cardiac ablation using fluoroscopy guidance completed Reggie López MA [facility] 01/17/2024 16:32:07 Imaging Results None recorded. Procedure Notes None recorded. Medical Equipment None Reported. Allergies No known drug allergies Medications Name Sig Start Date Stop Date Status Note LastModified by Organization Details LastModified Time montelukast 10 mg tablet TAKE 1 TABLET BY MOUTH EVERY DAY active Not Available Not Available No t Available methylpredni solone 4 mg tablets in a dose pack FOLLOW PACKAGE DIRECTIONS active Not Available Not Available N ot Available Vitamin D3 active otc Not Available Not Av ailable Not Available B12 active otc Not Available Not Availa ble Not Available Vitals Date Recorded Body weight Provider Name an d Address Organization Details Last Updated DateTime 01/17/2024 65366.49 g Reggie López MA [facility] 2023 16:28:05 Date Recorded Respiratory rate Provider Name a nd Address Organization Details Last Updated DateTime 01/17/2024 20 /min Reggie López MA [facility] 01/17/2024 16:28:11 Date Recorded Body mass index (BMI) Body height Provider Name and Address Organization Details Last Updated DateTime 01/17/2024 29.5 kg/m2 160.02 cm Reggie López MA [facility] 01/17/2024 16:28:17 Date Recorded Oxygen saturation Oxygen saturation in Arterial blood by Pulse oximetry Provider Name and Address Organization Details Last Updated DateTime 01/17/2024 99 % 99 % Reggie López MA [facility] 01/17/2024 16:34:21 Date Recorded Heart rate Provider Name an d Address Organization Details Last Updated DateTime 01/17/2024 77 /min Reggie López MA [facility] 2023 16:34:25 Date Recorded Systolic blood pressure Diastolic blood pressure Provider Name and Address Organization Details Last Updated DateTime 01/17/2024 122 mm[Hg] 72 mm[Hg] Reggie López MA [facility] 01/17/2024 16:34:20 Date Recorded Systolic blood pressure Diastolic blood pressure Provider Name and Address Organization Details Last Updated DateTime 01/17/2024 120 mm[Hg] 84 mm[Hg] KAUSHIK Sifuentes Attn: Accounting,[address] [facility], [place], [address], [facility] 01/17/2024 17:23:12 Social History Question Answer Notes LastModified by Organizat ion Details LastModified Time Tobacco Smoking Status Never Smoker Reggie López MA null, [facility] 01/17/2024 16:31:41 Do You Have An Advance Directive? No Information not available 01/17/2024 What Is Your Level Of Alcohol Consumption? Occasional 1-2x A Mo Information not available 01/17/2024 Are You Blind Or Do You Have Difficulty Seeing? No Contacts Information not available 01/17/2024 What Is Your Level Of Caffeine Consumption? Occasional 1 Caffeine A Day Information not available 01/17/2024 In The 14 Days Before Symptom Onset, Have You Had Close Contact With A Laboratory-confi rmed COVID-19 While That Case Was Ill? No Information not available 01/17/2024 In The 14 Days Before Symptom Onset, Have You Had Close Contact With A Person Who Is Under Investigation For COVID-19 While That Person Was Ill? No Information not available 01/17/2024 Have You Been To An Area Known To Be High Risk For COVID-19? No Information not available 01/17/2024 Are You Currently Employed? Yes Information not available 01/17/2024 Are You Deaf Or Do You Have Serious Difficulty Hearing? No Information not available 01/17/2024 What Type Of Diet Are You Following? 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 No Information not available 01/17/2024 What Was The Date Of Your Most Recent Tobacco Screening? 01/20/2024 Information not available 01/20/2024 Do You Use Your Seat Belt Or Car Seat Routinely? Yes Information not available 01/17/2024 Do You Have Smoke And Carbon Monoxide Detectors In Your Home? Yes Information not available 01/17/2024 Do You Feel Stressed (tense, Restless, Nervous, Or Anxious, Or Unable To Sleep At Night)? [id number] Information not available 01/17/2024 Do You Use Any Illicit Or Recreational Drugs? No Information not available 01/17/2024 Do You Use Sunscreen Routinely? Yes Information not available 01/17/2024 Has Tobacco Cessation Counseling Been Provided? No Information not available 01/17/2024 Do You Or Have You Ever Used Any Other Forms Of Tobacco Or Nicotine? No Information not available 01/17/2024 Sex: Female Functional Status Question Answer Note LastModified by Organizat ion Details LastModified Time Are you able to care for yourself? Yes Information not available 01/17/2024 What is your exercise level? Occasional support teacher Information not available 01/17/2024 Mental Status None recorded. Family History Relationship Description Onset Age of this Age Resolved Age Notes LastModified by Organization Details LastModified Time Mother Alcohol abuse tcarterma Not available 2023 12:01:10 Mother Hypercholest erolemia tcarterma Not available 2023 12:01:18 Mother Osteoporosis tcarterma Not avai lable 01/20/2024 12:01:23 Medical History Condition Response Coronary Artery Disease N Other N Atrial Fibrillation N High Blood Pressure N Kidney or Bladder Problems N Thyroid Problems N GI Problems N Depression N COPD N Blood Clots N Have you had a mammogram in the last yea r? N Skin Problems N Anemia N Heart Attack (OK) N Anxiety Disorder N Diabetes N Muscle, Joint, or Bone Problems N Seizures/Epilepsy N Have you had a colonoscopy in the last 1 0 years? N Acid Reflux (GERD) N Cancer N Stroke N Asthma N Allergies N Have you had a PSA blood test in the las t year? N High Cholesterol N Hepatitis N Liver Disease N Headaches N Heart Failure N Osteoporosis N Gynecological History Statement/Question Response Menses Monthly N Current Control Method IUD Obstetrics History GPAL:G 2 P 2 0 0 2 Type Value Full Term 2 Induced 0 Spontaneous 0 Premature 0 Living 2 Total 2 Past Encounters Encounter ID Performer Location Encounter Start Date Encounter Closed Date Diagnosis/Indication Diagnosis SNOMED-CT Code Diagnosis ICD10 Code Diagnosis Note [id number] [facility]K [facility]es [facility] [place] [address] [place] [address] 01/17/2024 16:16:21 01/20/2024 11:07:09 Body mass index 25-29 - overweight 978511579 Z68.29 BMI is 29.5 Overweight 688926135 E66 .3 discussed healthy diet, exercise, controllin g carbohydra skyla and added sugars in the diet Adult heal th examination 705845706 Z00.00 Annual wellness exam completed with routine fasting labs ordered Cholesterol screening 27 2995189 Z13.220 Fasting lipids due Diabetes m ellitus screening 707659756 Z13.1 Annual diabetes screening for risk assessment Thyroid di sorder screening 722429135 Z13.29 Annual thyroid labs ordered Screening mammography 24 528465 Z12.31 Annual mammogram is due Screening for malignant neoplasm of colon 455750301 Z12.11 Patient opts for Cologuard screening with average risk Allergic cough 983747772 R05.9 Start trial of Singulair 10 mg daily and a Medrol Dosepak Health Concerns Section Related Observation LastModified by Organization Detai ls LastModified Time None Recorded Concern Status LastModified by Organization Details LastModified Time None Recorded Advance Directives Directive N: Payers Encounter Date Sequence Insurance Name Policy Number Policy Mckenzie Covered Member ID Mckenzie Member ID Guarantor Name 01/17/2024 1 [place] [place]) [address] [id number] Talia Galvan Notes Date Note Type Note Provider Name and Address Organization Details Recorded Time 01/17/2024 text/html Sinusitis/Allerg y Reported bypatient.Notes:P t. states that she would like to discuss seasonal; allergies, states that she has had this off and on Dry cough since November, states that she is taking some flonase and wilbur states that she does see a difference a little. KAUSHIK Sifuentes Attn: Accounting,[address] [facility], [place], [address], [facility] 02/02/2024 20:41:54 OBGyn Episode No OBEpisode recorded.
--- OUTSIDE RECORDS SUMMARY | 2024-06-04 16:06 | XMS_ITS | Clinical Summary ---
Author Organization [facility] Address [address] [place] [address] Care Team Providers Care Tie Puller Name Role Phone Karen Denson Primary Care [...] PM CDT Sexual Orientation Not on file Obstetrics History Last Filed Vital Signs Vital Sign Reading Time Taken Comments Blood Pressure 164/88 05/15/2023 8:11 AM HOME CARE PROVIDER Pulse 85 05/15/2023 8:11 AM HOME CARE PROVIDER Temperature 36.7 ??C (98.1 ??F) 05/15/2023 8:11 AM CS T Respiratory Rate 16 05/15/2023 8:11 AM HOME CARE PROVIDER Oxygen Saturation 98% 05/15/2023 8:11 AM HOME CARE PROVIDER Inhaled Oxygen Concentration - - Weight 74.6 kg (164 lb 8 oz) 05/15/2023 8:11 AM HOME CARE PROVIDER Height 160 cm (5' 2.99 ) 05/15/2023 8:11 AM HOME CARE PROVIDER Body Mass Index 29.15 05/15/2023 8:11 AM HOME CARE PROVIDER Plan of Treatment Health Maintenance Due Date Last Done Comments Breast Cancer Screening-Mammogram 1976 Cervical Cancer Screening 1976 Colon Cancer Screening-Colonoscopy 1976 Depression Screening 1976 Hepatitis C Screening 1976 DTaP/Tdap/Td Vaccine (1 - Tdap) 09/15/1987 Hepatitis B Screening 1994 Regular Well Visit/Exam 18-64 1994 Covid-19 Vaccine (3 - 2023-2 5 season) 2024 10/21/2020, 09/28/2020 Influenza Vaccine (#1) 2024 03/02/2020 Pneumococcal vaccine <65 Aged Out No longer eligible based on patient's age to complete this topic Insurance [facility] FEDERAL [facility] FEDERAL Care Teams Tie Puller Relationship Specialty Start Date End Date Karen Denson PA PCP - General Physician Globe Mounter 09/19/21
--- OUTSIDE RECORDS SUMMARY | 2024-06-04 16:06 | XMS_ITS | Patient Health Summary ---
Author Organization [facility] Address [address] [place] [address] Care Team Providers Care Diesel Power Mechanic Name Role Phone Unknown, Provider Primary Care Provider Unavaila ble Note from [facility],non-owned Affiliates and Associated Physician Practices is amultiple site organization consisting of ambulatory clinics and hospital sitesin [place], [place], [place] and [place]. This disclosure is being madepursuant to the Care Everywhere program and may not contain all information available regarding this patient. Last updated 18.[facility] Social History Tobacco Use Types Packs/Day Years Used Date Smoking Tobacco: Never Assessed Sex and Gender Information Value Date Recorded Sex Assigned at Not on file Gender Identity Not on file Sexual Orientation Not on file Procedures * SKIN TEST PPD - POINT OF CARE(Performed 06/30/2016) Performed for Screening examination for pulmonary tuberculosis Results * SKIN TEST PPD - POINT OF CARE (06/30/2016) PPD 0mm MISCELLANEOUS SAMPLE S / Unknown 06/30/2016 Jeramy Padilla CONTROL TOWER RADIO OPERATOR-HEMSTITCHING MACHINE OPERATOR LAB - POINT OF CARE ORDERABLES Care Teams Diesel Power Mechanic Relationship Specialty Start Date End Date Unknown, Provider PCP - General 06/28/16
== END 2024-06-04 16:03 | disposition home or self-care (01) ==
LOC: ANHIMG 16:03
PROVIDERS: PCP Physician Assistant; Visit Provider Physician Assistant
DX: Z12.31 Encounter for screening mammogram for malignant neoplasm of breast (principal); R92.8 Other abnormal and inconclusive findings on diagnostic imaging of breast
CPT/HCPCS: 77063; 77067